=== PATIENT | male | born 1955 | race Caucasian/White ===

== ENCOUNTER → 2017-11-10 | Day surgery (SDC) | payer BC ==
[~2017-11-10] MED LIST: Lactated Ringers 1,000 ML IV SCH; Propofol 200 MG/20 ML SDV IV ONE
[2017-11-10 14:08] VITALS: BP 138/89
--- NOTE | 2017-11-13 09:21 | OR ---
DATE OF OPERATION: 11/10/2017 PREOPERATIVE DIAGNOSIS: FAMILY HISTORY OF COLON CA. POSTOPERATIVE DIAGNOSIS: FAMILY HISTORY OF COLON CA. SURGEON: Donell Mclaughlin MD PROCEDURE: FULL-LENGTH COLONOSCOPY. ALLERGIES: PARALEGAL SPECIALIST DUE TO ELEVATED BMI. COMPLICATIONS: None. SPECIMEN: None. FINDINGS: 1. Full-length colonoscopy. 2. Mild sigmoid diverticulosis. RECOMMENDATIONS: Followup colonoscopy every 5 years. INDICATIONS: The patient has a brother with prior history of colon cancer. He is due for a 5-year scope. DESCRIPTION OF PROCEDURE: The patient was prepped and draped, placed in left lateral decubitus position. A lubricated Olympus colonoscope was inserted and easily advanced to the cecum. Direct visualization of the ileocecal valve and appendiceal orifice was accomplished. Bowel prep was adequate. Upon withdrawal of the scope, throughout the length of the colon, I could find no signs of any polyps, masses, ulcerations, or bleeding sites, no vascular abnormalities or signs of colitis. A few scattered diverticula in the sigmoid area but very mild. The rectal vault appeared benign. Retroflexion of scope in the rectum showed no anal lesions. Air was suctioned. Scope removed without complication. STEPHANI/SYDNIE /[id number]
== END ==
LOC: CC.SDS 12:01
PROVIDERS: ATTEND Family Medicine
DX: Z12.11 Encounter for screening for malignant neoplasm of colon (principal); K57.30 Diverticulosis of large intestine without perforation or abscess without bleeding; I25.10 Atherosclerotic heart disease of native coronary artery without angina pectoris; N40.1 Benign prostatic hyperplasia with lower urinary tract symptoms; R35.1 Nocturia; I10 Essential (primary) hypertension; E78.5 Hyperlipidemia, unspecified; E55.9 Vitamin D deficiency, unspecified; Z79.82 Long term (current) use of aspirin; Z79.899 Other long term (current) drug therapy; Z80.0 Family history of malignant neoplasm of digestive organs; Z91.030 Bee allergy status; Z72.0 Tobacco use
CPT/HCPCS: J2704; J7120

== ENCOUNTER → 2022-11-25 | Day surgery (SDC) | payer MEDICARE, BC ==
[~2022-11-25] MED LIST changes: +Flumazenil 0.1 MG/ML 10 ML MDV ONE; -Lactated Ringers 1,000 ML IV SCH; +Lidocaine 2% 5 ML SDV ONE; +Midazolam 1 MG/ML 2 ML SDV ONE; -Propofol 200 MG/20 ML SDV IV ONE; +Propofol 200 MG/20 ML SDV ONE; +fentaNYL 50 MCG/ML SDV ONE
[2022-11-25] MEDS: Lactated Ringers 1,000 ML IV SCH (11:25)
[2022-11-25 12:51] VITALS: BP 126/83; PULSE 52
== END ==
LOC: CC.SDS 10:35
PROVIDERS: ATTEND Family Medicine
DX: Z12.11 Encounter for screening for malignant neoplasm of colon (principal); D12.5 Benign neoplasm of sigmoid colon; K57.30 Diverticulosis of large intestine without perforation or abscess without bleeding; K64.9 Unspecified hemorrhoids; I25.10 Atherosclerotic heart disease of native coronary artery without angina pectoris; I10 Essential (primary) hypertension; I25.2 Old myocardial infarction; E78.5 Hyperlipidemia, unspecified; Z80.0 Family history of malignant neoplasm of digestive organs; Z91.030 Bee allergy status; Z79.899 Other long term (current) drug therapy
CPT/HCPCS: 88305; J2250; J2704; J3010; J3490; J7120